=== PATIENT | male | born 1945 | race Caucasian/White ===

== ENCOUNTER 2022-10-25 09:53 | Outpatient (CLI) | payer MEDICARE, BC ==
[~2022-10-25] VITALS: Ht 180.3 cm; Wt 81.6 kg
[2022-10-25] MEDS ORDERED: albuterol 2.5 MG/3 ML nebule NEB ONE (10:35)
== END 2022-10-25 23:59 | disposition home or self-care (01) ==
LOC: RT 09:53
PROVIDERS: ATTEND Internal Medicine Pulmonary Disease
DX: R94.2 Abnormal results of pulmonary function studies (principal); J67.9 Hypersensitivity pneumonitis due to unspecified organic dust; J98.4 Other disorders of lung; R09.89 Other specified symptoms and signs involving the circulatory and respiratory systems
CPT/HCPCS: 94060; 94727; 94729; 94760